=== PATIENT | male | born 1960 | race Caucasian/White ===

== ENCOUNTER → 2018-12-18 | Outpatient (CLI) | payer OTHER ==
[~2018-12-18] MED LIST: ASA5UEC PO; LIPITOR10 MG PO; PAXIL10 MG PO
--- NOTE | 2018-12-19 08:02 | EKG ---
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 : 1960 Requested By: Isiah Powell Order Number: [id number] MD: Tyler Yates Measurements Intervals [place] Rate: 60 P: 56 RI: 178 QRS: -18 QRSD: 111 T: 38 QT: 431 QTc: 431 Interpretive Statements Sinus rhythm Borderline left axis deviation Nonspecific T wave abnormality No previous ECG available for comparison Electronically Signed On 12-19-2018 8:02:06 CDT by Tyler Yates [email or web address] ��������������������������������������������� <ELECTRONICALLY SIGNED> ���������������������������������������� By: Tyler Yates MD, [facility] ��������������������������������������������� 12/19/18 0802 0816 5 Tyler Yates MD, FACC /EPI
== END | disposition home or self-care (01) ==
LOC: LITH 07:44
DX: N20.2 Calculus of kidney with calculus of ureter (principal); Z79.899 Other long term (current) drug therapy; Z98.890 Other specified postprocedural states